=== PATIENT | female | born 1970 | race African-American/Black ===

== ENCOUNTER 2018-08-22 15:50 | Outpatient (CLI) | payer OTHER | END 2018-08-22 15:51 | disposition home or self-care (01) | LOC: BICMAMMO 15:50 | PROVIDERS: ATTEND Obstetrics & Gynecology | DX: Z12.31 Encounter for screening mammogram for malignant neoplasm of breast (principal) | CPT/HCPCS: 77063; 77067 ==

== ENCOUNTER 2019-01-29 19:05 | Emergency (ER) | payer OTHER ==
[2019-01-29 19:45] LABS: Bilirubin Negative (Negative); Blood, Urine Trace (Negative); Clarity Clear (Clear); Glucose, Urine (Dipstick) Negative (Negative); Leukocyte Negative (Negative); Nitrite Negative (Negative); Protein, Urine (Dipstick) 30 mg/dL (Neg-Trace); Specific Gravity, Urine 1.025 (1.002-1.036); Urobilinogen 0.2 mg/dL (0.2-1.0)
[2019-01-29] MEDS ORDERED: Ketorolac Tromethamine 30 MG/ML VIAL ONE (19:50)
[2019-01-29 19:51] LABS: Bacteria/HPF 3+ HPF (None Seen); RBC/HPF 0-3 HPF (0-3); Squamous Epithelial 21-50 HPF (0-3); WBC/HPF None Seen HPF (0-3)
== END 2019-01-29 20:35 | disposition home or self-care (01) ==
LOC: SCSER 19:05
DX: M54.5 Low back pain (principal); I10 Essential (primary) hypertension; Z79.899 Other long term (current) drug therapy
CPT/HCPCS: 81003; 81015; 87086; 96372; J1885

== ENCOUNTER 2019-11-02 13:06 | Outpatient (CLI) | payer OTHER ==
--- NOTE | 2019-11-02 15:33 | MMO ---
Bilateral MAMMO Bilat Screen [facility]. CLINICAL HISTORY: Patient is 49 years old and is seen for screening. The patient has no family history of breast cancer. The patient has no personal history of cancer. VIEWS: The views performed were: bilateral craniocaudal with tomosynthesis and bilateral mediolateral oblique with tomosynthesis. FILMS COMPARED: The present examination has been compared to prior imaging studies performed at on 08/22/2018. This study has been interpreted with the assistance of computer-aided detection. MAMMOGRAM FINDINGS: There are scattered fibroglandular densities. There are benign appearing calcifications seen in both breasts. There are no suspicious masses, suspicious calcifications, or new areas of architectural distortion. IMPRESSION: THERE IS NO MAMMOGRAPHIC EVIDENCE OF MALIGNANCY. A ROUTINE FOLLOW-UP MAMMOGRAM IN 1 YEAR IS RECOMMENDED. THE RESULTS OF THIS EXAM WERE SENT TO THE PATIENT. ACR BI-RADS Category 2 - Benign finding MAMMOGRAPHY NOTE: 1. A negative mammogram report should not delay a biopsy if a dominant of clinically suspicious mass is present. 2. Approximately 10% to 15% of breast cancers are not detected by mammography. 3. Adenosis and dense breasts may obscure an underlying neoplasm. Reported by: LETICIA RAYMOND MD Electonically Signed: [id number]
== END 2019-11-02 13:07 | disposition home or self-care (01) ==
LOC: BICMAMMO 13:06
PROVIDERS: ATTEND Obstetrics & Gynecology
DX: Z12.31 Encounter for screening mammogram for malignant neoplasm of breast (principal)
CPT/HCPCS: 77063; 77067

== ENCOUNTER 2020-04-24 22:01 | Inpatient (IN) | payer OTHER ==
[2020-04-24 22:52] LABS: Acetaminophen Less than 6.0 mcg/mL (10.0-30.0); Alcohol Less than 10 mg/dL (Less than 10); Salicylate Less than 8.0 mg/dL (15.0-30.0)
[2020-04-24 23:07] LABS: ALT (SGPT) 53 U/L (8-55); AST (SGOT) 10 U/L (5-34); Albumin 5.5 g/dL (3.5-5.0); Alkaline Phosphatase 93 U/L (40-110); Anion Gap 31 mmol/L (10-20); BUN (Urea Nitrogen) 47 mg/dL (7.0-18.7); Bilirubin, Total 0.6 mg/dL (0.2-1.2); Calc. Creatinine Clearance 0 mL/min (70-130); Calcium 11.7 mg/dL (7.8-10.44); Carbon Dioxide 16 mmol/L (22-29); Chloride 103 mmol/L (98-107); Estimated GFR-MDRD 21; Protein, Total 9.5 g/dL (6.0-8.3); Sodium 145 mmol/L (136-145)
[2020-04-24 23:10] LABS: Glucose 1159 mg/dL (70-105)
[2020-04-24] MEDS ORDERED: Meclizine HCl 25 MG TAB ONE (23:11)
[2020-04-24 23:13] LABS: #Lymphocytes 1.5 thou/uL (1.20-3.40); #Neutrophils 6.9 thou/uL (1.40-6.50); %Basophils 0.2 % (0.0-1.0); %Lymphocytes 16.2 % (21.0-51.0); %Monocytes 10.8 % (0.0-10.0); %Neutrophils 72.7 % (42.0-75.0); Hemoglobin 16.1 g/dL (12.0-16.0); Mean Corpuscular HGB CONC 29.4 g/dL (32.0-36.0); Mean Corpuscular Hemoglobin 27.3 pg (27.0-31.0); Mean Corpuscular Volume 92.6 fL (78.0-98.0); Mean Platelet Volume 11.2 fL (7.4-10.4); Platelet Count 373 thou/uL (130-400); RBC Distribution Width 13.6 % (11.5-14.5); Red Blood Cell (RBC) Count 5.92 mill/uL (4.20-5.40); White Blood Cell (WBC) Count 9.5 thou/uL (4.8-10.8)
--- NOTE | 2020-04-24 23:18 | RAD ---
PORTABLE CHEST: Date: 04/24/2020 HISTORY: Positive COVID. Cough. FINDINGS: Lungs appear clear and well aerated. No evidence of infiltrate identified. Heart and mediastinum unre markable. Vascular markings normal. IMPRESSION: No evidence of infiltrate on portable exam. POS: AGW
[2020-04-24 23:46] LABS: Bilirubin Negative (Negative); Blood, Urine Negative (Negative); Clarity Clear (Clear); Glucose, Urine (Dipstick) Greater than 1000 mg/dL (Negative); Ketone, Urine 20 mg/dL (Negative); Leukocyte Negative Leu/uL (Negative); Nitrite Negative (Negative); Protein, Urine (Dipstick) Negative (Neg-Trace); Urobilinogen Normal mg/dL (Less than 2)
[2020-04-24 23:52] LABS: Base Excess-Venous -6.8 mmol/L (-2.0 to 3.0); Bicarbonate (HCO3v) 21.7 mmol/L (22.0-28.0); Calcium, Ionized 1.24 mmol/L (See Comments:); Chloride 117 mmol/L (98-107); Hemoglobin - Calc 16.8 g/dL (12.0-16.0); Sodium 154 mmol/L (138-145); T. Carbon Dioxide 23.3 mmol/L (22.0-28.0); vO2 Saturation-calc 58.2 % (60.0-85.0)
[2020-04-24 23:53] LABS: Amphetamine Not Detected (NotDetected); Barbiturates Screen Not Detected (NotDetected); Benzodiazepine Screen Not Detected (NotDetected); Cocaine Metabolite Screen Not Detected (NotDetected); Medtox Control Line Valid? VALID (VALID); Medtox Reader # READER 4; Methadone Not Detected (NotDetected); Methamphetamine Not Detected (NotDetected); Opiate Screen Not Detected (NotDetected); Oxycodone Screen Not Detected (NotDetected); Phencyclidine (PCP) Not Detected (NotDetected); THC/Cannabinoid Screen Not Detected (NotDetected); Tricyclic Screen Not Detected (NotDetected)
[2020-04-25] MEDS ORDERED: Insulin Regular 100 units/100 ml in NS IVPB SCH (00:15)
[2020-04-25] MEDS ORDERED: Dextrose 5 %-0.45 % NaCl 1,000 ML IV PRN (00:41)
[2020-04-25] MEDS ORDERED: Electrolyte Replacement Protoc 1 EACH EACH IVPB PRN (00:41)
[2020-04-25] MEDS ORDERED: Acetaminophen 325 MG TAB PO PRN (00:41)
[2020-04-25] MEDS ORDERED: Ondansetron ODT 4 MG TAB PO PRN (00:41)
[2020-04-25] MEDS ORDERED: D5 1/2 NS w/20 mEq KCL 1,000 ML IV PRN (00:41)
[2020-04-25] MEDS ORDERED: NS 0.9% w/ 20 MEQ KCL 1,000 ML IV PRN (00:41)
[2020-04-25] MEDS ORDERED: Sodium Chloride 0.9% 1,000 ML IV PRN ×4 (00:41)
[2020-04-25] MEDS ORDERED: HUMULIN R 100 UNITS in Sodium Chloride 0.9% 100 ML IVPB SCH (00:45)
[2020-04-25] MEDS ORDERED: Benzonatate 100 MG CAP PO PRN (00:49)
[2020-04-25] MEDS ORDERED: Adacel (T-DAP) 0.5 ML SYRINGE ONE (00:55)
[2020-04-25] MEDS ORDERED: Labetalol HCl 100 MG/20 ML VIAL SLOW IVP PRN (00:59)
--- NOTE | 2020-04-25 01:22 | PDOC.FPRHP ---
- History of Present Illness Chief Complaint: Dizziness, weakness History of Present Illness: Ms. Shields is a 49 yo female with PMH of HTN who presents to the ED with complaints of dizziness and weakness. This all began on 04/23 and was accompanied by headache and blurry vision. The pt reports that she was diagnosed with COVID 19 a few weeks ago and has since had two negative tests. She attributed these symptoms to the virus as she has had residual cough and congestion. She also reports months of polyuria and polydipsia as well as recent dysuria, vaginal itching, and white vaginal discharge. ED Course: Labs in the ED revealed glucose of 1159. Started on insulin drip and NS per DKA protocol; given meclizine. - Allergies/Adverse Reactions Allergies Allergy/AdvReac Type Severity Reaction Status Date / Time No Known Drug Allergies Allergy Unverified 04/24/20 23:57 - Home Medications Medication Instructions Recorded Confirmed Type Triamterene/Hydrochlorothiazid 1 cap PO DAILY 04/25/20 04/25/20 History [Triamterene-Hctz 37.5-25 mg Cp] - History PMHx: HTN PSHx: Tubal ligation and uterine ablation FHx: Daughter recently diagnosed with DM; no other family hx Social: lives alone in [place]. Works at the hospital. Denies tobacco, drug use. Drinks a minimal amount of alcohol. - Review of Systems General: reports: weight/appetite/sleep changes, fatigue, other (Headache). denies: fever/chills Eyes: reports: vision changes ENT: reports: nasal congestion, other (No sore throat) Respiratory: reports: cough, congestion Cardiovascular: denies: chest pain, edema Gastrointestinal: reports: nausea, vomiting. denies: diarrhea, constipation, GI bleeding Genitourinary: reports: dysuria, polyuria, discharge Skin: denies: rashes, lesions Musculoskeletal: denies: pain, swelling, arthritis/arthralgias Neurological: reports: weakness. denies: syncope Psychological: denies: anxiety, depression - Vital signs BP: [156/98] HR: [97] RR: [17] Tmax: [97.8] Pox: [98]% on [RA] Wt: [90.72kg] - Physical Exam -Constitutional: Sleepy and weak appearing HEENT: normocephalic and atraumatic, grossly normal vision, grossly normal hearing -HEENT: Dry mucous membranes Neck: supple Heart: RRR, normal S1/S2, no murmurs/rubs/gallops Lungs: CTAB -Lungs: Tachypneic Abdomen: soft, bowel sounds present -Abdomen: Mildly tender to palpation; no guarding or rebound Musculoskeletal: normal structure, ROM grossly normal Neurological: no focal deficit, CN II-XII intact, normal sensation Skin: no rash/lesions, good turgor Heme/Lymphatic: no unusual bruising or bleeding, no purpura, no petechia Psychiatric: normal mood and affect, good judgment and insight, intact recent and remote memory FMR H&P: Results - Labs Result Diagrams: 04/25/20 03:13 04/25/20 05:50 Lab results: WBC 9.5 thou/uL (4.8-10.8) 04/24/20 22:26 Hgb 16.1 g/dL (12.0-16.0) H 04/24/20 22:26 Hct 54.8 % (36.0-47.0) H 04/24/20 22:26 MCV 92.6 fL (78.0-98.0) 04/24/20 22:26 Plt Count 373 thou/uL (130-400) 04/24/20 22:26 Neutrophils % 72.7 % (42.0-75.0) 04/24/20 22:26 VBG pCO2 53.0 mmHg (40.0-50.0) H 04/24/20 23:46 VBG pO2 36.7 mmHg (35.0-45.0) 04/24/20 23:46 Sodium 145 mmol/L (136-145) 04/24/20 22:26 Potassium 5.0 mmol/L (3.5-5.1) 04/24/20 22:26 Chloride 103 mmol/L (98-107) 04/24/20 22:26 Carbon Dioxide 16 mmol/L (22-29) L 04/24/20 22:26 BUN 47 mg/dL (7.0-18.7) H 04/24/20 22:26 Creatinine 2.91 mg/dL (0.6-1.1) H 04/24/20 22:26 Glucose 1159 mg/dL (70-105) H* 04/24/20 22:26 Lactic Acid 3.4 mmol/L (0.5-2.2) H 04/24/20 22:26 Calcium 11.7 mg/dL (7.8-10.44) H 04/24/20 22:26 Total Bilirubin 0.6 mg/dL (0.2-1.2) 04/24/20 22:26 AST 10 U/L (5-34) 04/24/20 22:26 ALT 53 U/L (8-55) 04/24/20 22:26 Alkaline Phosphatase 93 U/L (40-110) 04/24/20 22:26 Serum Total Protein 9.5 g/dL (6.0-8.3) H 04/24/20 22:26 Albumin 5.5 g/dL (3.5-5.0) H 04/24/20 22:26 Urine Ketones 20 mg/dL (Negative) A 04/24/20 23:31 Urine Blood Negative (Negative) 04/24/20 23:31 Urine Nitrite Negative (Negative) 04/24/20 23:31 Ur Leukocyte Esterase Negative Ethel/uL (Negative) 04/24/20 23:31 - EKG Interpretation EKG: Sinus tachy with rate of 107 FMR H&P: A/P - Problem List (1) DKA (diabetic ketoacidoses) Current Visit: Yes Status: Acute Priority: High Code(s): E11.10 - TYPE 2 DIABETES MELLITUS WITH KETOACIDOSIS WITHOUT COMA (2) DAYANA (acute kidney injury) Current Visit: Yes Status: Acute Code(s): N17.9 - ACUTE KIDNEY FAILURE, UNSPECIFIED (3) HTN (hypertension) Current Visit: Yes Status: Chronic Code(s): I10 - ESSENTIAL (PRIMARY) HYPERTENSION (4) Vaginal yoseph Current Visit: Yes Status: Acute Code(s): B37.3 - CANDIDIASIS OF VULVA AND VAGINA - Plan 49 yo female with PMH of HTN being admitted for DKA and DAYANA. DKA -newly diagnosed diabetes; last A1C on file in 2013 was 5.7 -Will admit to [facility] with DKA protocol of insulin drip, fluids, electrolyte replacement as needed, q1hr glucose checks, q4hr BMP DAYANA -GFR 21 -Cr: 2.92 -on fluid per DKA protocol -holding home losartan/HCTZ -Heparin for PPx HTN -on losartan/HCTZ at home, will hold as stated above -labatolol PRN ordered -amlodipine 5mg po order -will likely need to f/u outpatient to optimize BP control Vaginal Candidiasis -dysuria, white discharge per pt -ordered fluconazole Diet: NPO, Ice Chips, Sips with meds IVF: per DKA protocol PPx: Heparin, Protonix PCP: SHANIQUE Attending: Jose Raul Dispo: will admit to IMCU. Length of stay >48 hrs. FMR H&P: Upper Level - Plan Date/Time: 04/25/20118 IJoellen, have evaluated this patient and agree with findings/plan as outlined by pharmacy graduate intern resident. Pertinent changes/additions are listed here. 49YO AAF with a PMH notable for HTN who presented to the ER for progressively worsening dizziness with associated headache, N/V & fatigue/weakness since yesterday. Reports she has been drinking & urinating frequently for the last few months but reports she has never been diagnosed with diabetes. Reports she was diagnosed with COVID-19 about 1 month ago but has had 2 negative tests since but has had a slow recovery so was unsure if her symptoms were lingering from COVID vs. a new issue. However, she got to the point today where she could not take it anymore so decided to come to the ER for evaluation. She also endorsed dysuria & vaginal itching & white discharge since yesterday on ROS as well as blurry vision. On evaluation in the ER the patient was noted to be in DKA with a BG level of 1159, anion gap of 26, serum bicarb of 16, serum ketones of 7.18 & VBG with a pH of 7.2 & PCO2 of 59. Her H/H was also high at 16.1/ 54.8. Her lactate was also elevated at 3.4. Lastly, her BUN/Cr & eGFR were all c /w DAYANA at 47/2.91 & 21. On exam the patient was noted to be in mild distress 2/ 2 fatigue & tachypnea in response to her acidotic state. She was breathing ~33 times/minute and was also hypertensive with a BP of 169/142 but all other vitals were WNLs. She was noted to have dry mucous membranes. She also had some mild abdominal TTP but no guarding or rebound. Exam was otherwise unremarkable. She was given 2L of NS & started on an insulin drip in the ED for DKA. Plan will be to admit to the IMCU for continued insulin drip therapy until AG closes & serum bicarb is at least 15 & patient able to tolerate PO. While on the protocol will get strict I&Os & keep NPO w/ ice chips & meds w/ sips allowed. Will check Q1HR BG levels & Q4HR BMPS while on the drip & will check an A1c & FLP with AM labs. Will have PRN Zofran available for nausea. Regarding her DAYANA, the patient will be getting aggressive IVFs with the DKA protocol. Will avoid nephrotoxic agents & renally dose all meds PRN. Regarding her suspected vulvovaginal candidiasis, will treat empirically with 150mg diflucan x1. Will give repeat dose in ~72 hours if still symptomatic by then. Regarding her HTN, will hold home losartan-HCTZ combo in setting of DAYANA. Will have PRN labetalol available overnight & will start on 5mg Norvasc in the AM. Addendum - Attending - Attending Attestation Date/Time: 04/25/20 0730 I personally evaluated the patient and discussed the management with Dr. Lee I agree with the History, Examination, Assessment and Plan documented above with any addition or exceptions noted below -49YO AAF with a PMH notable for HTN who presented to the ER for progressively worsening dizziness with associated headache, N/V & fatigue/weakness since yesterday. Reports she has been drinking & urinating frequently for the last few months but reports she has never been diagnosed with diabetes. Reports she was diagnosed with COVID-19 about 1 month ago but has had 2 negative tests since but has had a slow recovery so was unsure if her symptoms were lingering from COVID vs. a new issue. Denies any fever/chills, dysuria, sore throat. Still has residual cough from COVID. Afebrile BP 132/95 115 RR22 97% Exam repeated by me and agree with resident's findings. Labs: Na= 145, K=5.0, Nq=943, CO2=16, BUN/Cr=47/2.91, Dcot=0664, lactic acid=3.4, VBG=7.219/53/36/22, WBC=9.5, H/H=16.1/54.8, Mjb=794 A/P: 1) DKA - Admit to IMCU; DKA protocol. Started on insulin drip. Monitor BG q1 hour; basmet q4 hours. Monitor I/Os. 2) DAYANA secondary to DKA/dehydration- cotninue IVF and recheck with BMP. 3) HTN- hold ARB/HCTZ due to to DAYANA; labetolol prn for severe BP. Restart ARB when DAYANA resolves/Cr stable
[2020-04-25 01:34] LABS: Lactic Acid 2.2 mmol/L (0.5-2.2)
[2020-04-25 01:39] LABS: Anion Gap 28 mmol/L (10-20); BUN (Urea Nitrogen) 39 mg/dL (7.0-18.7); Calc. Creatinine Clearance 0 mL/min (70-130); Carbon Dioxide 12 mmol/L (22-29); Chloride 118 mmol/L (98-107); Estimated GFR-MDRD 32; Magnesium 3.6 mg/dL (1.6-2.6); Phosphorus 3.2 mg/dL (2.3-4.7); Potassium 4.9 mmol/L (3.5-5.1); Sodium 153 mmol/L (136-145)
[2020-04-25 01:48] LABS: Glucose 758 mg/dL (70-105)
[2020-04-25] MEDS: NS 0.9% w/ 20 MEQ KCL 1,000 ML IV PRN ×2 (03:07→06:21)
[2020-04-25] MEDS: Ondansetron PF 4 MG/2 ML Vial IVP PRN (03:07)
[2020-04-25 03:16] VITALS: BMI 27.1
[2020-04-25 04:00] LABS: Hemoglobin A1c 13.2 % (4.0-6.0)
[2020-04-25 04:16] LABS: Cardiac Risk 5.4 (Less than 4.5)
[2020-04-25 05:32] LABS: Band 1 % (5-11); Hemoglobin 14.9 g/dL (12.0-16.0); Lymphocytes 32 % (21-51); MDiff Complete? YES; Mean Corpuscular HGB CONC 32.1 g/dL (32.0-36.0); Mean Corpuscular Hemoglobin 27.8 pg (27.0-31.0); Mean Corpuscular Volume 86.6 fL (78.0-98.0); Mean Platelet Volume 10.9 fL (7.4-10.4); Monocytes 12 % (0-10); Neutrophil 54 % (42-75); Platelet Count 340 thou/uL (130-400); RBC Distribution Width 13.4 % (11.5-14.5); Reactive Lymphocytes 1 % (0-10); Red Blood Cell (RBC) Count 5.36 mill/uL (4.20-5.40); White Blood Cell (WBC) Count 10.3 thou/uL (4.8-10.8)
[2020-04-25 06:33] LABS: Anion Gap 22 mmol/L (10-20); BUN (Urea Nitrogen) 33 mg/dL (7.0-18.7); Calc. Creatinine Clearance 43 mL/min (70-130); Calcium 10.1 mg/dL (7.8-10.44); Carbon Dioxide 18 mmol/L (22-29); Chloride 126 mmol/L (98-107); Estimated GFR-MDRD 37; Glucose 508 mg/dL (70-105); Potassium 4.6 mmol/L (3.5-5.1); Sodium 161 mmol/L (136-145)
[2020-04-25] MEDS ORDERED: Promethazine HCl 6.25 MG in Sodium Chloride 0.9% 50 ML IVPB SCH (07:30)
[2020-04-25] MEDS: Heparin 5,000 UNITS/ML VIAL SC SCH ×3 (08:29→21:43)
[2020-04-25] MEDS: Amlodipine 5 MG TAB PO SCH (08:29)
[2020-04-25] MEDS: 1/2 NS w/KCL 20 mEq 1,000 ML IV SCH ×3 (08:31→17:15)
[2020-04-25] MEDS ORDERED: Fluconazole 100 MG TAB PO SCH (09:00)
[2020-04-25 09:06] LABS: Anion Gap 20 mmol/L (10-20); BUN (Urea Nitrogen) 31 mg/dL (7.0-18.7); Calc. Creatinine Clearance 50 mL/min (70-130); Calcium 10.1 mg/dL (7.8-10.44); Carbon Dioxide 19 mmol/L (22-29); Chloride 129 mmol/L (98-107); Estimated GFR-MDRD 43; Glucose 437 mg/dL (70-105); Potassium 4.5 mmol/L (3.5-5.1); Sodium 163 mmol/L (136-145)
[2020-04-25 12:06] LABS: Anion Gap 19 mmol/L (10-20); BUN (Urea Nitrogen) 27 mg/dL (7.0-18.7); Calc. Creatinine Clearance 52 mL/min (70-130); Carbon Dioxide 20 mmol/L (22-29); Chloride 128 mmol/L (98-107); Estimated GFR-MDRD 46; Glucose 331 mg/dL (70-105); Potassium 4.5 mmol/L (3.5-5.1); Sodium 162 mmol/L (136-145)
[2020-04-25 15:18] LABS: Anion Gap 14 mmol/L (10-20); BUN (Urea Nitrogen) 25 mg/dL (7.0-18.7); Calc. Creatinine Clearance 57 mL/min (70-130); Calcium 10.1 mg/dL (7.8-10.44); Carbon Dioxide 24 mmol/L (22-29); Chloride 129 mmol/L (98-107); Estimated GFR-MDRD 51; Glucose 257 mg/dL (70-105); Potassium 4.2 mmol/L (3.5-5.1); Sodium 163 mmol/L (136-145)
[2020-04-25] MEDS ORDERED: Insulin Glargine 10 UNITS in Pre-Filled Syringe SC SCH (17:30)
[2020-04-25 17:55] LABS: ALT (SGPT) 34 U/L (8-55); AST (SGOT) 13 U/L (5-34); Albumin 4.3 g/dL (3.5-5.0); Alkaline Phosphatase 67 U/L (40-110); Anion Gap 15 mmol/L (10-20); BUN (Urea Nitrogen) 23 mg/dL (7.0-18.7); Bilirubin, Total 0.7 mg/dL (0.2-1.2); Calc. Creatinine Clearance 59 mL/min (70-130); Calcium 9.6 mg/dL (7.8-10.44); Carbon Dioxide 22 mmol/L (22-29); Chloride 129 mmol/L (98-107); Estimated GFR-MDRD 53; Globulin 3.4 g/dL (2.4-3.5); Glucose 189 mg/dL (70-105); Potassium 4.1 mmol/L (3.5-5.1); Protein, Total 7.7 g/dL (6.0-8.3); Sodium 162 mmol/L (136-145)
[2020-04-25] MEDS ORDERED: Dextrose 5% in Water 1,000 ML IV SCH (18:30)
[2020-04-25] MEDS ORDERED: Dextrose 5% in Water 1,000 ML IV PRN (19:37)
[2020-04-25] MEDS ORDERED: HumaLOG 300 UNITS/3 ML VIAL SC PRN (19:37)
[2020-04-25] MEDS ORDERED: Dextrose 50% Abboject 50 ML SYRINGE SLOW IVP PRN (19:37)
[2020-04-25 21:41] LABS: Anion Gap 16 mmol/L (10-20); BUN (Urea Nitrogen) 20 mg/dL (7.0-18.7); Calc. Creatinine Clearance 63 mL/min (70-130); Calcium 9.1 mg/dL (7.8-10.44); Carbon Dioxide 19 mmol/L (22-29); Chloride 125 mmol/L (98-107); Estimated GFR-MDRD 57; Glucose 281 mg/dL (70-105); Potassium 4.2 mmol/L (3.5-5.1); Sodium 156 mmol/L (136-145)
[2020-04-25] MEDS: HumaLOG 300 UNITS/3 ML VIAL SC PRN (21:42)
[2020-04-26] MEDS: HumaLOG 300 UNITS/3 ML VIAL SC PRN ×4 (00:23→17:25)
[2020-04-26 02:04] LABS: Anion Gap 10 mmol/L (10-20); BUN (Urea Nitrogen) 19 mg/dL (7.0-18.7); Calc. Creatinine Clearance 72 mL/min (70-130); Calcium 9.3 mg/dL (7.8-10.44); Carbon Dioxide 24 mmol/L (22-29); Chloride 124 mmol/L (98-107); Estimated GFR-MDRD 67; Glucose 208 mg/dL (70-105); Potassium 3.4 mmol/L (3.5-5.1); Sodium 155 mmol/L (136-145)
[2020-04-26] MEDS ORDERED: Potassium Chloride 20 MEQ TAB PO SCH (02:45)
[2020-04-26] MEDS: Ondansetron PF 4 MG/2 ML Vial IVP PRN ×2 (04:50→09:48)
--- NOTE | 2020-04-26 06:13 | PDOC.FM ---
- Subjective Subjective: Doing well this morning. Complains of bad taste in her mouth. - Objective MAR Reviewed: Yes Vital Signs & Weight: Vital Signs (12 hours) Temp Pulse Ox 04/26/20 04:47 97.2 F L 04/25/20 23:30 97.6 F 04/25/20 20:00 100 04/25/20 19:24 98.1 F Weight Admit Weight 71.577 kg Weight 71.577 kg Most Recent Monitor Data Heart Rate from ECG 95 NIBP 151/99 NIBP BP-Mean 116 Respiration from ECG 17 SpO2 96 I&O: 04/24/20 04/25/20 04/26/20 06:59 06:59 06:59 Intake Total 0 7116 Output Total 400 1275 Balance -400 5841 Result Diagrams: 04/25/20 03:13 04/26/20 07:09 Phys Exam - Physical Examination Constitutional: NAD HEENT: PERRLA, moist MMs Neck: no JVD, supple Respiratory: no wheezing, no rales, no rhonchi, clear to auscultation bilateral Cardiovascular: RRR, no significant murmur Gastrointestinal: soft, non-tender Musculoskeletal: no edema, pulses present Neurological: non-focal, normal sensation Psychiatric: normal affect, A&O x 3 Skin: no rash, normal turgor Dx/Plan (1) DAYANA (acute kidney injury) Code(s): N17.9 - ACUTE KIDNEY FAILURE, UNSPECIFIED Status: Acute (2) DKA (diabetic ketoacidoses) Code(s): E11.10 - TYPE 2 DIABETES MELLITUS WITH KETOACIDOSIS WITHOUT COMA Status: Acute (3) Vaginal yoseph Code(s): B37.3 - CANDIDIASIS OF VULVA AND VAGINA Status: Acute (4) HTN (hypertension) Code(s): I10 - ESSENTIAL (PRIMARY) HYPERTENSION Status: Chronic (5) New onset type 2 diabetes mellitus Code(s): E11.9 - TYPE 2 DIABETES MELLITUS WITHOUT COMPLICATIONS Status: Acute - Plan Plan: DKA, New onset type II DM -Last A1C on file in 2013 was 5.7 -Gap has closed. Glucose <200. Received 10u Lantus yesterday. Will titrate insulin dose. -14u Lantus this morning. Agressive sliding scale. -Hypoglycemia protocol in place. DAYANA -GFR 21 -Cr: 2.92 -Heparin for PPx HTN -on triamterene/hctz at home, will hold as stated above -Discontinue amlodipine, Start lisinopril 5mg. -will likely need to f/u outpatient to optimize BP control -labatolol PRN ordered Vaginal Candidiasis -ordered fluconazole Diet: CC IVF: PPx: Heparin, Protonix PCP: SHANIQUE Dispo: will admit to IMCU. Length of stay >48 hrs.
[2020-04-26 07:46] LABS: Anion Gap 13 mmol/L (10-20); BUN (Urea Nitrogen) 17 mg/dL (7.0-18.7); Calc. Creatinine Clearance 68 mL/min (70-130); Calcium 8.9 mg/dL (7.8-10.44); Carbon Dioxide 22 mmol/L (22-29); Chloride 119 mmol/L (98-107); Estimated GFR-MDRD 62; Glucose 322 mg/dL (70-105); Potassium 4.2 mmol/L (3.5-5.1); Sodium 150 mmol/L (136-145)
[2020-04-26] MEDS ORDERED: Insulin Glargine 10 UNITS in Pre-Filled Syringe SC SCH (09:00)
[2020-04-26] MEDS ORDERED: Insulin Glargine 14 UNITS in Pre-Filled Syringe 1 EACH SC SCH (09:00)
[2020-04-26] MEDS: Heparin 5,000 UNITS/ML VIAL SC SCH ×3 (09:38→22:09)
[2020-04-26] MEDS: Amlodipine 5 MG TAB PO SCH (09:38)
[2020-04-26] MEDS: Lisinopril 5 MG TAB PO SCH (11:46)
[2020-04-26 14:31] LABS: Anion Gap 12 mmol/L (10-20); BUN (Urea Nitrogen) 15 mg/dL (7.0-18.7); Calc. Creatinine Clearance 70 mL/min (70-130); Calcium 9.3 mg/dL (7.8-10.44); Carbon Dioxide 24 mmol/L (22-29); Chloride 116 mmol/L (98-107); Estimated GFR-MDRD 65; Glucose 341 mg/dL (70-105); Potassium 3.9 mmol/L (3.5-5.1); Sodium 148 mmol/L (136-145)
[2020-04-26] MEDS ORDERED: Insulin Glargine 10 UNITS in Pre-Filled Syringe 1 EACH SC SCH (15:30)
--- NOTE | 2020-04-26 17:55 | PRG ---
DATE OF SERVICE: 04/26/2020 Please see the progress note done by Dr. Shanelle Bennett for which I agree. Patient was seen, evaluated, discussed, and examined with the residents by bedside. Doing better from a DKA standpoint and has switched over to Lantus. she may end up needing a lot more. Otherwise, improving, slowly advancing diet and we discussed type 2 diabetes management with her and dietary choices, etc. Anticipated probably being able to be discharged tomorrow. Job ID: [id number]
[2020-04-26 19:54] LABS: Anion Gap 10 mmol/L (10-20); BUN (Urea Nitrogen) 12 mg/dL (7.0-18.7); Calc. Creatinine Clearance 79 mL/min (70-130); Calcium 8.9 mg/dL (7.8-10.44); Carbon Dioxide 24 mmol/L (22-29); Chloride 114 mmol/L (98-107); Estimated GFR-MDRD 74; Glucose 240 mg/dL (70-105); Potassium 3.2 mmol/L (3.5-5.1); Sodium 145 mmol/L (136-145)
[2020-04-27] MEDS: HumaLOG 300 UNITS/3 ML VIAL SC PRN ×2 (05:51→12:00)
[2020-04-27 07:30] LABS: Chloride 109 mmol/L (98-107); Potassium 3.6 mmol/L (3.5-5.1); Sodium 140 mmol/L (136-145)
[2020-04-27 07:31] LABS: Calcium 8.8 mg/dL (7.8-10.44); Glucose 302 mg/dL (70-105)
[2020-04-27 07:33] LABS: Anion Gap 13 mmol/L (10-20); Carbon Dioxide 22 mmol/L (22-29)
[2020-04-27 07:35] LABS: BUN (Urea Nitrogen) 11 mg/dL (7.0-18.7); Calc. Creatinine Clearance 81 mL/min (70-130); Estimated GFR-MDRD 76
--- NOTE | 2020-04-27 07:59 | PDOC.FM ---
- Subjective Subjective: Doing well this morning. Complains of hunger. - Objective MAR Reviewed: Yes Vital Signs & Weight: Vital Signs (12 hours) Temp Pulse Resp BP Pulse Ox 04/27/20 05:00 96 04/27/20 04:00 98.3 F 73 16 126/76 96 04/27/20 01:33 98.2 F 84 18 109/66 96 04/26/20 20:40 97.9 F 51 L 16 137/87 97 04/26/20 20:00 97 Weight Admit Weight 71.577 kg Weight 71.577 kg Most Recent Monitor Data Heart Rate from ECG 82 NIBP 174/89 NIBP BP-Mean 117 Respiration from ECG 20 SpO2 98 I&O: 04/26/20 04/27/20 04/28/20 06:59 06:59 06:59 Intake Total 7236 840 Output Total 1475 250 Balance 5761 590 Result Diagrams: 04/25/20 03:13 04/27/20 07:09 Phys Exam - Physical Examination Constitutional: NAD HEENT: PERRLA, moist MMs Neck: supple Respiratory: no wheezing, no rales, no rhonchi, clear to auscultation bilateral Cardiovascular: RRR, no significant murmur Gastrointestinal: soft, non-tender Musculoskeletal: no edema, pulses present Neurological: non-focal, moves all 4 limbs Psychiatric: normal affect, A&O x 3 Skin: no rash, normal turgor Dx/Plan (1) DAYANA (acute kidney injury) Code(s): N17.9 - ACUTE KIDNEY FAILURE, UNSPECIFIED Status: Acute (2) DKA (diabetic ketoacidoses) Code(s): E11.10 - TYPE 2 DIABETES MELLITUS WITH KETOACIDOSIS WITHOUT COMA Status: Acute (3) Vaginal yoseph Code(s): B37.3 - CANDIDIASIS OF VULVA AND VAGINA Status: Acute (4) HTN (hypertension) Code(s): I10 - ESSENTIAL (PRIMARY) HYPERTENSION Status: Chronic (5) New onset type 2 diabetes mellitus Code(s): E11.9 - TYPE 2 DIABETES MELLITUS WITHOUT COMPLICATIONS Status: Acute - Plan Plan: DKA, New onset type II DM -Last A1C on file in 2013 was 5.7 -Gap has closed. Glucose <200. Received 10u Lantus yesterday. Will titrate insulin dose. -30u Lantus this morning. Agressive sliding scale. -Hypoglycemia protocol in place. DAYANA, resolved HTN -on triamterene/hctz at home, d/c -Discontinue amlodipine, Start lisinopril 5mg. -will likely need to f/u outpatient to optimize BP control -labatolol PRN ordered Vaginal Candidiasis -ordered fluconazole Diet: CC IVF: SL PPx: Heparin, Protonix PCP: SHANIQUE Dispo: Stable, inpatient, on medical floor for insulin titration.
[2020-04-27 08:12] VITALS: BP 145/93; TEMP 98.4
[2020-04-27] MEDS ORDERED: Insulin Glargine 30 UNITS in Pre-Filled Syringe 1 EACH SC SCH (09:00)
[2020-04-27] MEDS: Heparin 5,000 UNITS/ML VIAL SC SCH ×2 (09:08→16:07)
[2020-04-27] MEDS: Lisinopril 5 MG TAB PO SCH (09:08)
--- NOTE | 2020-04-27 16:25 | PRG ---
DATE OF SERVICE: 04/27/2020 Please see the note from Dr. Bennett, for which I agree. The patient is seen, evaluated, discussed, and examined with the residents by bedside. No big change on her. Acidosis has cleared and we are just trying to control her sugar and increasing Lantus appropriately. So, plan is to continue the Lantus and we will slowly adjust Lantus, but this can be done as an outpatient. Job ID: [id number]
--- NOTE | 2020-04-29 07:18 | PQF ---
CLINICAL DOCUMENTATION CLARIFICATION FORM: Dear : Den Alcala Date / Time: 04/29/20715 Please exercise your independent, professional judgment in responding to the clarification form. Clinical indicators are provided on the bottom of this form for your review In your clinical opinion based on clinical findings below, can you please identify the condition as the reason for Inpatient admission if due to: Please check appropriate box(es): [ ] DAYAAN [ ] DKA [ ] Other diagnosis [ ] Unable to determine Physician Signature: Date/Time: For continuity of documentation, please document condition throughout progress notes and discharge summary. Thank You. To be completed by CDI/Coding staff for physician review: Present Clinical Indicators - Signs / Symptoms / Labs Results and Location in Medical Record [ X] BUN 47, Creatinine 2.91, GFR 21 Laboratory Hematology 04/24 [ X] Glucose 1159, POC Glucose Greater than 550 Laboratory Hematology 04/24 [ X] BP 156/98, Pulse 97, Resp 17 Vital signs 04/25 [ X] complaints of dizziness and weakness H&P p1 04/25 Dr Lee [ X] DAYANA secondary to DKA/Dehydration H&P p6 04/25 Dr Lee Present Risk Factors Results and Location in Medical Record [ X] HTN H&P p1 04/25 Dr Lee [ X] Vaginal yoseph H&P p4 04/25 Dr Lee [ X] DM H&P p4 04/25 Dr Lee [ X] Dehydration H&P p6 04/25 Dr Lee Present Treatments Results and Location in Medical Record [ X] IV D5w DEC 14 [ X] Insulin 10 units sq DEC 14 [ X] IVF NS 1L DEC 14 [ X] ICU admitted Ordered Dr Lee 04/25 [ X] DKA protocol Ordered Dr Lee 04/25 CDS/Fire Crew Specialist Signature: Damaris Everettmarika Phone #: ext [phone] Date/Time: 04/29/20715 This is a permanent part of the Medical Record [facility]
--- NOTE | 2020-04-29 16:08 | DIS ---
DATE OF ADMISSION: 04/25/2020 DATE OF DISCHARGE: 04/27/2020 ADMITTING ATTENDING: Dr. Blunt. DISCHARGE ATTENDING: Dr. Alcala. RESIDENT: Shanelle Bennett MD. CONSULTS: None. PROCEDURES: None. PRIMARY DIAGNOSIS: Diabetic ketoacidosis. SECONDARY DIAGNOSES: New onset type 2 diabetes, acute kidney injury, hypertension, vaginal candidiasis. DISCHARGE MEDICATIONS: 1. Tessalon Perles 100 mg t.i.d. p.r.n. 2. Glucometer 3. Lantus insulin 30 units subcu daily. 4. Lisinopril 5 mg daily. 5. Protonix 40 mg daily. Discontinued medications; triamterene-hydrochlorothiazide. HISTORY OF PRESENT ILLNESS/HOSPITAL COURSE: Ms. Shields is a 49-year-old female with past medical history of high blood pressure, who presents to the ER with complaints of dizziness, weakness, and nausea that began on the 15, two days prior to admission. She had recently recovered from COVID-19 infection and had 2- tests since then. She reported months of polydipsia and polyuria with recent onset of dysuria, vaginal itching, and vaginal discharge. In the ED, her glucose was revealed to be 1159, and she was started on a DKA protocol. Her beta-hydroxybutyrate was elevated at 7.18 on admission. Her toxicology screen was negative. She was started on an insulin drip and once her blood sugar was under control, she was started on long-acting insulin, which she tolerated well. Once her blood sugar normalized and her anion gap metabolic acidosis was resolved, she was able to be discharged home. DISPOSITION: Stable. DISCHARGE INSTRUCTIONS: Location: Home. Diet: Diabetic heart healthy. Activity: Ad parker. Followup: Follow up with primary care physician within 1 week. Job ID: [id number] MTDD
== END 2020-04-27 17:09 | disposition home or self-care (01) | DRG 682 ==
LOC: ERS 22:01 → IMCU/EMU 04-25 00:03 → T4-B 04-26 13:33
PROVIDERS: ADMIT Family Medicine; ATTEND Family Medicine
DX: N17.9 Acute kidney failure, unspecified (principal); E11.10 Type 2 diabetes mellitus with ketoacidosis without coma; I10 Essential (primary) hypertension; B37.3 Candidiasis of vulva and vagina; E86.0 Dehydration; Z79.899 Other long term (current) drug therapy; Z98.51 Tubal ligation status; Z86.19 Personal history of other infectious and parasitic diseases
CPT/HCPCS: 36415; 36416; 71045; 80048; 80053; 80061; 80306; 80307; 81003; 82010; 82330; 82803; 83036; 83605; 83735; 84100; 84484; 85025; 90715; 93005; 96361; 96365; 96366; J1644; J1815; J2405; J2550; J3480; J3490

== ENCOUNTER 2020-11-21 12:09 | Outpatient (CLI) | payer OTHER | END 2020-11-21 12:10 | disposition home or self-care (01) | LOC: BICMAMMO 12:09 | PROVIDERS: ATTEND Family Medicine | DX: Z12.31 Encounter for screening mammogram for malignant neoplasm of breast (principal) | CPT/HCPCS: 77063; 77067 ==

== ENCOUNTER 2021-04-11 15:35 | Emergency (ER) | payer OTHER ==
[2021-04-11] MEDS ORDERED: Nitroglycerin 2% Ointment 1 INCH/1 GM Packet ONE (15:57)
[2021-04-11] MEDS ORDERED: Aspirin Chewable 81 MG TAB ONE (15:57)
[2021-04-11 15:59] LABS: #Eosinphils 0.1 thou/uL (0.0-0.7); #Lymphocytes 3.3 thou/uL (1.20-3.40); #Monocytes 0.8 thou/uL (0.11-0.59); #Neutrophils 4.1 thou/uL (1.40-6.50); %Basophils 0.4 % (0.0-1.0); %Eosinophils 0.8 % (0.0-10.0); %Lymphocytes 39.9 % (21.0-51.0); %Monocytes 9.4 % (0.0-10.0); %Neutrophils 49.6 % (42.0-75.0); Hemoglobin 12.9 g/dL (12.0-16.0); Mean Corpuscular HGB CONC 32.9 g/dL (32.0-36.0); Mean Corpuscular Hemoglobin 27.8 pg (27.0-31.0); Mean Corpuscular Volume 84.5 fL (78.0-98.0); Mean Platelet Volume 9.6 fL (7.4-10.4); Platelet Count 253 thou/uL (130-400); RBC Distribution Width 12.6 % (11.5-14.5); Red Blood Cell (RBC) Count 4.65 mill/uL (4.20-5.40); White Blood Cell (WBC) Count 8.2 thou/uL (4.8-10.8)
[2021-04-11 16:23] LABS: ALT (SGPT) 15 U/L (8-55); AST (SGOT) 20 U/L (5-34); Albumin 4.3 g/dL (3.5-5.0); Alkaline Phosphatase 52 U/L (40-110); Anion Gap 15 mmol/L (10-20); BUN (Urea Nitrogen) 17 mg/dL (9.8-20.1); Bilirubin, Total 0.3 mg/dL (0.2-1.2); CK (CPK) 148 U/L (29-168); Calc. Creatinine Clearance 0 mL/min (70-130); Calcium 9.5 mg/dL (7.8-10.44); Carbon Dioxide 21 mmol/L (22-29); Chloride 104 mmol/L (98-107); Globulin 3.3 g/dL (2.4-3.5); Glucose 165 mg/dL (70-105); Lipase 41 U/L (8-78); Potassium 3.6 mmol/L (3.5-5.1); Protein, Total 7.6 g/dL (6.0-8.3); Sodium 136 mmol/L (136-145)
== END 2021-04-11 17:03 | disposition home or self-care (01) ==
LOC: ERS 15:35
DX: R07.89 Other chest pain (principal); E11.9 Type 2 diabetes mellitus without complications; E78.5 Hyperlipidemia, unspecified; I10 Essential (primary) hypertension; Z79.899 Other long term (current) drug therapy; Z79.4 Long term (current) use of insulin; Z79.82 Long term (current) use of aspirin
CPT/HCPCS: 71045; 80053; 82550; 83690; 83880; 84484; 85025; 85379; 93005

== ENCOUNTER 2022-03-17 12:00 | Outpatient (CLI) | payer BC | END 2022-03-17 12:01 | disposition home or self-care (01) | LOC: BICMAMMO 12:00 | PROVIDERS: ATTEND Family Medicine | DX: Z12.31 Encounter for screening mammogram for malignant neoplasm of breast (principal) | CPT/HCPCS: 77063; 77067 ==

== ENCOUNTER 2022-11-16 16:29 | Outpatient (CLI) | payer BC | END 2022-11-16 16:30 | disposition home or self-care (01) | LOC: RAD 16:29 | PROVIDERS: ATTEND Family Medicine | DX: S69.91XA Unspecified injury of right wrist, hand and finger(s), initial encounter (principal) ==

== ENCOUNTER 2023-06-29 13:33 | Outpatient (CLI) | payer BC | END 2023-06-29 13:34 | disposition home or self-care (01) | LOC: BICMAMMO 13:33 | PROVIDERS: ATTEND Family Medicine | DX: Z12.31 Encounter for screening mammogram for malignant neoplasm of breast (principal) | CPT/HCPCS: 77063; 77067 ==